=== PATIENT | female | born 1975 ===

== ENCOUNTER 2018-06-13 15:32 | Emergency (ER) | payer MEDICAID ==
[2018-06-13 15:52] VITALS: BMI 29.2
[2018-06-13 15:54] VITALS: TEMP 98
--- NOTE | 2018-06-13 16:38 | ED PDOC ---
Arrival/HPI - General Historian: Patient - History of Present Illness Narrative History of Present Illness (Text): 06/13/18 16:35 42yo female who present with complaint of LUQ abdominal pain that radiates to her back x one week. States pain became constant and sharp yesterday. also reprot nausea and vomiting today. +Dysuria and hesitancy. Denies diarrhea, constipation, fever, chills, sick contact, chest pain, any other complaint. <Apurva Mahoney A - Last Filed: 06/13/18 21:13> <Irasema Eason PA-C - Last Filed: 06/14/18 00:51> - General Chief Complaint: Abdominal Pain Time Seen by Provider: 06/13/18 15:53 Past Medical History - Provider Review Nursing Documentation Reviewed: Yes - Infectious Disease Hx of Infectious Diseases: None - Tetanus Immunization Tetanus Immunization: Unknown - Cardiac Hx Cardiac Disorders: Yes Hx Hypertension: Yes - Pulmonary Hx Respiratory Disorders: No - Neurological Hx Neurological Disorder: No - HEENT Hx HEENT Disorder: No - Renal Hx Renal Disorder: No - Endocrine/Metabolic Hx Endocrine Disorders: No - Hematological/Oncological Hx Blood Disorders: Yes Hx Anemia: Yes (blood transfusions, heavy periods) Hx Blood Transfusions: Yes - Integumentary Hx Dermatological Disorder: No Other/Comment: left posterior upper arm surgical dresing dry and intact - Musculoskeletal/Rheumatological Hx Musculoskeletal Disorders: No - Gastrointestinal Hx Gastrointestinal Disorders: Yes Other/Comment: ectopic - Genitourinary/Gynecological Hx Genitourinary Disorders: Yes - Psychiatric Hx Psychophysiologic Disorder: No Hx Substance Use: No - Surgical History Hx Appendectomy: Yes Hx Section: Yes (x2) Other/Comment: ectopic - Anesthesia Hx Anesthesia: Yes Hx Anesthesia Reactions: No Hx Malignant Hyperthermia: No - Suicidal Assessment Feels Threatened In Home Enviroment: No <DiruHappiness A - Last Filed: 06/13/18 21:13> Family/Social History - Physician Review Nursing Documentation Reviewed: Yes Family/Social History: Unknown Family HX Smoking Status: Never Smoked Hx Alcohol Use: No Hx Substance Use: No Hx Substance Use Treatment: No <MaruHappiness A - Last Filed: 06/13/18 21:13> Allergies/Home Meds <DirdeepikaHappiness A - Last Filed: 06/13/18 21:13> <Irasema Eason PA-C - Last Filed: 06/14/18 00:51> Allergies/Adverse Reactions: Allergies No Known Allergies Allergy (Verified 06/13/18 15:52) Home Medications: Home Meds Medication Instructions Recorded Confirmed Atenolol 50 mg PO DAILY 04/02/14 06/13/18 Review of Systems - Physician Review All systems were reviewed & negative as marked: Yes - Review of Systems Constitutional: Normal Eyes: Normal ENT: Normal Respiratory: Normal Cardiovascular: Normal Gastrointestinal: Abdominal Pain, Nausea, Vomiting. absent: Constipation, Diarrhea, Hematochezia, Hematemesis Genitourinary Female: Normal Musculoskeletal: Normal Skin: Normal Neurological: Normal Endocrine: Normal Hemo/Lymphatic: Normal Psychiatric: Normal <Diru,Happiness A - Last Filed: 06/13/18 21:13> Physical Exam Vital Signs Reviewed: Yes Vital Signs Temp Pulse Resp BP Pulse Ox 06/13/18 15:52 98.0 F 65 18 163/97 H 98 Temperature: Afebrile Blood Pressure: Normal Pulse: Regular Respiratory Rate: Normal Appearance: Positive for: Well-Appearing, Non-Toxic, Comfortable Pain Distress: None Mental Status: Positive for: Alert and Oriented X 3 - Systems Exam Head: Present: Atraumatic, Normocephalic Pupils: Present: PERRL Extroacular Muscles: Present: EOMI Conjunctiva: Present: Normal Mouth: Present: Moist Mucous Membranes Neck: Present: Normal Range of Motion Respiratory/Chest: Present: Clear to Auscultation, Good Air Exchange. No: Respiratory Distress, Accessory Muscle Use Cardiovascular: Present: Regular Rate and Rhythm, Normal S1, S2. No: Murmurs Abdomen: Present: Tenderness (LQU), Normal Bowel Sounds. No: Distention, Peritoneal Signs, Rebound, Guarding, McBurney's Point Tender, Rovsing's Sign Present Back: Present: CVA Tenderness (Left). No: Midline Tenderness, Paraspinal Tenderness Upper Extremity: Present: Normal Inspection. No: Cyanosis, Edema Lower Extremity: Present: Normal Inspection. No: Edema Neurological: Present: GCS=15, CN II-XII Intact, Speech Normal Skin: Present: Warm, Dry, Normal Color. No: Rashes Psychiatric: Present: Alert, Oriented x 3, Normal Insight, Normal Concentration <Diru,Happiness A - Last Filed: 06/13/18 21:13> Vital Signs Temp Pulse Resp BP Pulse Ox 06/13/18 15:52 98.0 F 65 18 163/97 H 98 <Irasema Eason PA-C - Last Filed: 06/14/18 00:51> Medical Decision Making ED Course and Treatment: 06/13/18 21:13 42yo female in ED for LUQ pain that radiates to her back. Labs UA Abdominal/pelvic CT Toradol, Pepcid, Zofran Labs was reviewed and was all wnl. Trace lyse blood noted in the UA Abdominal/pelvic CT pending to r/o renal colic Case endorsed to [facility] to f/u CT report and dispo patient - RAD Interpretation Radiology Orders: 06/13/18 16:20 ABD & PELVIS W/O PO OR IV CONT [CT] Stat - Medication Orders Current Medication Orders: Discontinued Medications Ondansetron HCl (Zofran Inj) 4 mg IVP STAT STA Stop: 06/13/18 16:21 <Apurva Mahoney A - Last Filed: 06/13/18 21:13> ED Course and Treatment: 06/14/18 00:30 CT A/P : 1. Mild constipation. No obstructive or inflammatory bowel changes. 2. 1 mm nonobstructing stone in the right kidney. No evidence of hydronephrosis. Jamie Grewal MD 06/14/18 00:03 On re-evaluation, patient reports improvement of symptoms, denies any abdominal pain or back pain. On exam, patient remains AAOx3, in no acute distress. Lab and CT results reviewed and d/w the patient in great detail. Diagnosis of back pain, constipation, possible passed renal stone (as the CT shows +stone on the R side not the left) d/w the patient. Based on history, exam and diagnostic results, plan will be for outpatient follow up. Patient instructed to follow-up with pmd in 1-2 days without fail. Advised to take medication as prescribed. Return to the emergency room at any time for any new or worsening symptoms. Patient states she fully agrees with and understands discharge instructions. States that she agrees with the plan and disposition. Verbalized and repeated discharge instructions and plan. I have given the patien t opportunity to ask any additional questions. - Lab Interpretations Lab Results: 06/13/18 17:20 06/13/18 17:20 Lab Results 06/13/18 17:25: Urine Color Light yellow, Urine Appearance Clear, Urine pH 6.0, Ur Specific Curtis 1.025, Urine Protein Negative, Urine Glucose (UA) Negative, Urine Ketones Negative, Urine Blood Trace-lysed H, Urine Nitrate Negative, Urine Bilirubin Negative, Urine Urobilinogen 0.2, Ur Leukocyte Esterase Negative, Urine RBC 0 - 2, Urine WBC Negative, Ur Epithelial Cells 0 - 2 06/13/18 17:20: Sodium 137, Potassium 3.7, Chloride 104, Carbon Dioxide 25, Anion Gap 12, BUN 14, Creatinine 0.6 L, Est GFR ( Amer) > 60, Est GFR (Non-Af Amer) > 60, Random Glucose 93, Calcium 9.2, Magnesium 2.1, Total Bilirubin 0.4, AST 22, ALT 20, Alkaline Phosphatase 60, Total Protein 7.8, Albumin 4.2, Globulin 3.6, Albumin/Globulin Ratio 1.2, Lipase 119 06/13/18 17:20: PT 11.9, INR 1.04, APTT 31.1 06/13/18 17:20: WBC 6.6 D, RBC 4.36, Hgb 13.6, Hct 40.2, MCV 92.2, MCH 31.2, MCHC 33.8, RDW 13.1, Plt Count 265, MPV 10.7, Gran % 51.2, Lymph % (Auto) 40.4 H , Sterling % (Auto) 5.9, Eos % (Auto) 2.0, Baso % (Auto) 0.5, Gran # 3.37, Lymph # (Auto) 2.7, Sterling # (Auto) 0.4, Eos # (Auto) 0.1, Baso # (Auto) 0.03 - RAD Interpretation Radiology Orders: 06/13/18 16:20 ABD & PELVIS W/O PO OR IV CONT [CT] Stat - Medication Orders Current Medication Orders: Discontinued Medications Famotidine (Pepcid) 20 mg PO STAT STA Stop: 06/13/18 18:47 Last Admin: 06/13/18 18:56 Dose: Not Given Non-Admin Reason: Patient Refused Ketorolac Tromethamine (Toradol) 60 mg IM STAT STA Stop: 06/13/18 19:03 Last Admin: 06/13/18 19:38 Dose: 60 mg MAR Pain Assessment Document 06/13/18 19:38 CNR (Rec: 06/13/18 19:38 CNR [id number]) Pain Reassessment Is this a pain reassessment? No IM Administration Charges Document 06/13/18 19:38 CNR (Rec: 06/13/18 19:38 CNR [id number]) Injection Site MAR Injection Site Left Gluteus Chepe Charges for Administration # of IM Administrations 1 Ondansetron HCl (Zofran Odt) 4 mg PO STAT STA Stop: 06/13/18 18:47 Last Admin: 06/13/18 18:56 Dose: Not Given Non-Admin Reason: Patient Refused <Irasema Eason PA-C - Last Filed: 06/14/18 00:51> - PA / LEARNING SERVICES COORDINATOR / Resident Statement / has reviewed & agrees with the documentation as recorded. <Irasema Eason PA-C - Last Filed: 06/14/18 00:51> Disposition/Present on Arrival - Present on Arrival History of DVT/PE: No History of Uncontrolled Diabetes: No Urinary Catheter: No History of Decub. Ulcer: No History Surgical Site Infection Following: None <Apurva Mahoney - Last Filed: 06/13/18 21:13> - Present on Arrival Any Indicators Present on Arrival: No History of DVT/PE: No History of Uncontrolled Diabetes: No Urinary Catheter: No History of Decub. Ulcer: No - Disposition Have Diagnosis and Disposition been Completed?: Yes Disposition Time: 00:45 Patient Plan: Discharge <Irasema Eason PA-C - Last Filed: 06/14/18 00:51> - Disposition Diagnosis: Back pain, Renal colic, Constipation Disposition: HOME/ ROUTINE Condition: STABLE Discharge Instructions (ExitCare): Renal Colic, High Fiber Diet, Constipation, Adult (DC) Print Language: PRYDEINIG Additional Instructions: Thank you for letting us take care of you today. You were treated for back pain, renal colic, constipation. The emergency medical care you received today was directed at your acute symptoms. If you were prescribed any medication, please fill it and take as directed. It may take several days for your symptoms to resolve. Return to the Emergency Department if your symptoms worsen, do not improve, or if you have any other problems. Please contact your doctor in 2 days for re-evaluation and follow up. Bring any paperwork you were given at discharge with you along with any medications you are taking to your follow up visit. Our treatment cannot replace ongoing medical care by a primary care provider (PCP) outside of the emergency department. Thank you for allowing the [facility] team to be part of your care today. If you had an CT : A Radiologist will review the ED reading if any change in treatment is needed we will contact you. Prescriptions: Naproxen 500 mg PO BID PRN #20 tablet PRN Reason: Pain, Moderate (4-7) Referrals: Nichole Gordon MD [Primary Care Provider] - Follow up with primary Forms: [employer] (Eth[place]ian), WORK NOTE
[2018-06-13 17:30] LABS: BASO # 0.03 K/mm3 (0.0-2.0); BASO % 0.5 % (0.0-3.0); EOS # 0.1 (0.0-0.7); GRAN # 3.37 (1.4-6.5); GRAN % 51.2 % (50.0-68.0); HEMOGLOBIN 13.6 g/dL (12.0-16.0); LYMPH # 2.7 (1.2-3.4); LYMPH % 40.4 % (22.0-35.0); MEAN CELL VOLUME 92.2 fl (80.0-105.0); MEAN CORPUSCULAR HEMOGLOBIN 31.2 pg (25.0-35.0); MEAN CORPUSCULAR HGB CONC 33.8 g/dl (31.0-37.0); MEAN PLATELET VOLUME 10.7 fl (7.0-11.0); MONO # 0.4 (0.1-0.6); MONO % 5.9 % (1.0-6.0); RBC 4.36 10^6/uL (3.5-6.1); RED CELL DISTRIBUTION WIDTH 13.1 % (11.5-14.5); WHITE BLOOD COUNT 6.6 10^3/ul (4.5-11.0)
[2018-06-13 17:35] LABS: URINE BILIRUBIN NEGATIVE (NEGATIVE); URINE BLOOD TRACE-LYSED (NEGATIVE); URINE GLUCOSE (UA) NEGATIVE (NEGATIVE); URINE LEUKOCYTE ESTERASE NEGATIVE Leu/uL (NEGATIVE); URINE PROTEIN NEGATIVE mg/dL (<30 mg/dL); URINE UROBILINOGEN 0.2 E.U./dL (<1 E.U./dL)
[2018-06-13 17:36] LABS: URINE APPEARANCE CLEAR (CLEAR); URINE COLOR LIGHT YELLOW (YELLOW)
[2018-06-13 17:41] LABS: URINE EPITHELIAL CELLS 0 - 2 /hpf (0-5); URINE RBC 0 - 2 /hpf (0-2); URINE WBC NEGATIVE /hpf (0-6)
[2018-06-13 17:42] LABS: ALB/GLOB RATIO 1.2 (1.1-1.8); ALBUMIN 4.2 g/dL (3.0-4.8); ALT/SGPT 20 U/L (7-56); AST/SGOT 22 U/L (14-36); BLOOD UREA NITROGEN 14 mg/dL (7-21); CALCIUM 9.2 mg/dL (8.4-10.5); GFR NON-AFRICAN AMERICAN > 60; LIPASE 119 U/L (23-300)
[2018-06-13 17:43] LABS: INR 1.04; PARTIAL THROMBOPLASTIN TIME 31.1 Seconds (25.1-36.5); PROTHROMBIN TIME 11.9 SECONDS (9.4-12.5)
[2018-06-14 01:34] VITALS: RESP 17
[2018-06-14 01:35] VITALS: BP 122/82; PULSE 80; O2SAT 97
--- NOTE | 2018-06-14 10:23 | CT ---
Date of service: 06/13/2018 PROCEDURE: CT Abdomen and Pelvis without intravenous contrast HISTORY: LUQ/BAck pain COMPARISON: 12/11/2012. CT abdomen and pelvis. TECHNIQUE: Unenhanced. Neither IV nor oral contrast administered Radiation dose: Total exam DLP = mGy-cm. This CT exam was performed using one or more of the following dose reduction techniques: Automated exposure control, adjustment of the mA and/or kV according to patient size, and/or use of iterative reconstruction technique. FINDINGS: LOWER THORAX: Unremarkable. LIVER: Unremarkable. No gross lesion or ductal dilatation. GALLBLADDER AND BILE DUCTS: Unremarkable. PANCREAS: Unremarkable. No gross lesion or ductal dilatation. SPLEEN: Unremarkable. ADRENALS: Unremarkable. No mass. KIDNEYS AND URETERS: Solitary calculus midpole region right kidney measures 2 mm. No hydronephrosis. No solid mass. VASCULATURE: Unremarkable. No aortic aneurysm. BOWEL: Constipation without fecal impaction or obstruction. APPENDIX: Surgical clips related to prior appendectomy. PERITONEUM: Unremarkable. No free fluid. No free air. LYMPH NODES: Unremarkable. No enlarged lymph nodes. BLADDER: Unremarkable. REPRODUCTIVE: Well-circumscribed right adnexal mass 2.6 cm, mean Hounsfield unit values suggest a simple cyst. Prior hysterectomy. BONES: No acute fracture. OTHER FINDINGS: None. IMPRESSION: Nonobstructing 2 mm calculus midpole region right kidney. Likely right adnexal cyst. Additional benign and/or incidental findings described above. Concordant results (preliminary interpretation) provided by [facility]. Procedure Completed: 22:21 Preliminary Report: Dictated and Authenticated: 00:03 Final Interpretation: 10:17
== END 2018-06-14 00:59 | disposition home or self-care (01) ==
LOC: ED 15:32
DX: N23 Unspecified renal colic (principal); M54.9 Dorsalgia, unspecified; K59.00 Constipation, unspecified
CPT/HCPCS: 74176; 80053; 81001; 83690; 83735; 85025; 85610; 85730; 96372; 99284; J1885